=== PATIENT | male | born 1940 | race Two or more races ===

== ENCOUNTER 2018-01-01 08:21 | Outpatient (CLI) | payer OTHER | END 2018-01-01 08:31 | disposition home or self-care (01) | LOC: NUCLEAR 08:21 | DX: R12 Heartburn (principal) | CPT/HCPCS: 78264; A9541 ==

== ENCOUNTER 2018-01-10 09:36 | Day surgery (SDC) | payer OTHER ==
[2018-01-10] MEDS ORDERED: NEXIUM 24HR20 MG PO (12:55)
== END 2018-01-10 14:05 | disposition home or self-care (01) ==
LOC: AMB-ENDOS 09:36
DX: K29.60 Other gastritis without bleeding (principal); K21.0 Gastro-esophageal reflux disease with esophagitis

== ENCOUNTER 2018-02-06 07:00 | Day surgery (SDC) | payer OTHER ==
[~2018-02-06] VITALS: Ht 162.6 cm; Wt 59.0 kg
[~2018-02-06 07:00] MED LIST: CYMBALTA60 MG; NEXIUM 24HR20 MG PO; SYNTHROID50 MCG
[2018-02-07] MEDS ORDERED: CARAFATE1 GM/10 ML PO (15:41)
[2018-02-07] MEDS ORDERED: TYLENOL-CODEINE1 TA1 PO (15:42)
[2018-02-07] MEDS ORDERED: GAS RELIEF 8080 MG PO (15:42)
[2018-02-07] MEDS ORDERED: ZOFRAN4 MG PO (15:43)
== END 2018-02-07 13:00 | disposition home or self-care (01) ==
LOC: CIR.AMB 07:00 → O/R 10:39 → SURH 10:39 → EDSTATUS 12:00 → SURG 12:00 → RECOVERY 12:00 → CIR.AMB 16:26 → EDSTATUS 16:26 → RECOVERY 16:32 → CIR.AMB 02-07 13:00 → SURH 02-07 16:57 → O/R 02-07 16:57
DX: K44.9 Diaphragmatic hernia without obstruction or gangrene (principal); K21.0 Gastro-esophageal reflux disease with esophagitis; K42.9 Umbilical hernia without obstruction or gangrene

== ENCOUNTER 2019-10-27 10:55 | Outpatient (CLI) | payer OTHER ==
[~2019-10-27] VITALS: Ht 162.6 cm; Wt 53.1 kg
[~2019-10-27 10:55] MED LIST changes: +CARAFATE1 GM/10 ML PO; +GAS RELIEF 8080 MG PO; +TYLENOL-CODEINE1 TA1 PO; +ZOFRAN4 MG PO
== END 2019-10-27 19:28 | disposition home or self-care (01) ==
LOC: OFIC 805 10:55
PROVIDERS: ATTEND Otolaryngology
DX: R07.0 Pain in throat (principal); M54.2 Cervicalgia

== ENCOUNTER 2019-11-04 09:04 | Outpatient (CLI) | payer OTHER | END 2019-11-04 09:13 | disposition home or self-care (01) | LOC: RX STUDY 09:04 | PROVIDERS: ATTEND Otolaryngology | DX: R13.19 Other dysphagia (principal) ==